=== PATIENT | female | born 1990 | race Asian ===

== ENCOUNTER 2018-09-27 08:05 | Outpatient (CLI) | payer BC ==
[2018-09-27 09:30] LABS: APPEARANCE,URINE CLEAR (CLEAR); BILIRUBIN,URINE NEGATIVE (NEGATIVE); BLOOD, URINE 2+ Ery/uL (NEGATIVE); COLOR,URINE YELLOW (YELLOW); KETONES,URINE NEGATIVE (NEGATIVE); LEUKOCYTE ESTERASE ,URINE NEGATIVE (NEGATIVE); NITRITE, URINE NEGATIVE (NEGATIVE); PROTEIN,URINE NEGATIVE (NEGATIVE); UGLUCOSE NEGATIVE (NEGATIVE); UROBILINOGEN,URINE 0.2 EU/dL (0.2)
[2018-09-27 09:33] LABS: BASOPHILS % (AUTO) 0.4 % (0.0-2.0); EOSINOPHILS % (AUTO) 5.1 % (0.0-6.0); HEMATOCRIT 40 % (33-45); HEMOGLOBIN 13.1 g/dL (11.5-14.8); LYMPHOCYTES # (AUTO) 1.8 /CMM (0.8-4.8); LYMPHOCYTES % (AUTO) 25.8 % (20.0-44.0); MEAN CORPUSCULAR HGB CONC 33 g/dl (31.0-36.0); MEAN CORPUSCULAR VOLUME 91 fL (82-100); MONOCYTES # (AUTO) 0.5 /CMM (0.1-1.30); MONOCYTES % (AUTO) 6.7 % (2.0-12.0); NEUTROPHILS # (AUTO) 4.3 /CMM (1.8-8.9); PLATELET COUNT (AUTO) 215 /CMM (150-450); RED BLOOD CELL COUNT(AUTO) 4.35 MIL/uL (4.0-5.2); WHITE BLOOD COUNT (AUTO) 6.9 K/uL (4.3-11.0)
[2018-09-27 09:40] LABS: SQUAMOUS EPITHELIAL CELL,UR Few /HPF (None Seen)
[2018-09-27 09:43] LABS: BACTERIA,URINE Rare /HPF (None Seen)
[2018-09-27 09:44] LABS: ALBUMIN 4.3 g/dL (3.4-5.0); BILIRUBIN,TOTAL 0.6 mg/dL (0.2-1.0); CALCIUM, SERUM 9.3 mg/dL (8.5-10.1); CREATININE 0.8 mg/dL (0.6-1.3); POTASSIUM 3.8 mmol/L (3.5-5.1); WBC,URINE 0-2 /HPF (0-3)
[2018-09-27 09:54] LABS: THYROID STIMULATING HORMONE 2.364 uIU/mL (0.358-3.74)
[2018-09-28 11:10] LABS: *FOLIC ACID 16.4 ng/mL (>3.0)
[2018-10-01 12:09] LABS: IMMUNOGLOBULIN E,TOTAL 21 IU/mL (0-100)
== END 2018-09-27 23:59 | disposition home or self-care (01) ==
LOC: LAB 08:05
PROVIDERS: ATTEND Legal Medicine
DX: Z00.00 Encounter for general adult medical examination without abnormal findings (principal); E03.9 Hypothyroidism, unspecified; D64.9 Anemia, unspecified; E55.9 Vitamin D deficiency, unspecified; J30.9 Allergic rhinitis, unspecified
CPT/HCPCS: 36415; 80053-TC; 80061-TC; 81000-TC; 82306; 82728-TC; 82785; 83540-TC; 84439-TC; 84443-TC; 85025-TC; 86003

== ENCOUNTER 2019-04-09 11:10 | Outpatient (CLI) | payer BC | END 2019-04-09 23:59 | disposition home or self-care (01) | LOC: MRI 11:10 | PROVIDERS: ATTEND Legal Medicine | DX: M50.23 Other cervical disc displacement, cervicothoracic region (principal); M48.02 Spinal stenosis, cervical region; M40.292 Other kyphosis, cervical region | CPT/HCPCS: 72141-TC ==